=== PATIENT | female | born 1990 | race American Indian/Alaskan Native ===

== ENCOUNTER 2017-10-18 13:44 | Outpatient (CLI) | payer MEDICAID ==
[2017-10-18 15:27] VITALS: BP 116/56
== END 2017-10-18 15:44 | disposition home or self-care (01) ==
LOC: TRG 13:44
PROVIDERS: ATTEND Obstetrics & Gynecology
DX: O48.0 Post-term pregnancy (principal); Z3A.40 40 weeks gestation of pregnancy
CPT/HCPCS: 59025

== ENCOUNTER 2021-08-14 06:04 | Day surgery (SDC) | payer MEDICAID ==
[2021-08-14] MEDS ORDERED: LACTATED RINGERS 1,000 ML IV SCH (06:30)
[2021-08-14] MEDS ORDERED: BACTERIOSTATIC SODIUM CHLORIDE 0.9% 30 ML VIAL INFILTRATI ONE (06:33)
[2021-08-14] MEDS ORDERED: BUPIVACAINE/PF (0.25%) 2.5 MG/ML 30 ML VIAL INFILTRATI ONE ×2 (07:22→09:45)
[2021-08-14 07:29] LABS: Hematocrit 37.9 % (30.3-42.9)
[2021-08-14] MEDS ORDERED: fentaNYL 100 MCG/2 ML INJ ONE (07:44)
[2021-08-14] MEDS ORDERED: ROCURONIUM 50 MG/5 ML INJ IV ONE (07:45)
[2021-08-14] MEDS ORDERED: ONDANSETRON 4 MG/2 ML INJ ONE (07:45)
[2021-08-14] MEDS ORDERED: propofoL 200 MG/20 ML VIAL IV ONE (07:45)
--- NOTE | 2021-08-14 07:46 | Anesthesia Day of Surgery ---
Anesthesia Day of Surgery - Day of Surgery Patient Examined: Yes Patient H&P Reviewed: Yes Patient is NPO: Yes
--- NOTE | 2021-08-14 07:46 | Anesthesia Consultation ---
Anesthesia Consult and Med Hx Date of service: 08/14/21 - Airway Anesthetic Teeth Evaluation: Good ROM Head & Neck: Adequate Mental/Hyoid Distance: Adequate Mallampati Class: Class II Intubation Access Assessment: Probably Good - Pre-Operative Health Status ASA Pre-Surgery Classification: ASA3 Proposed Anesthetic Plan: General - Pulmonary Hx Smoking: No Hx Asthma: No COPD: No Hx Pneumonia: No Hx Sleep Apnea: No (SNORES) - Cardiovascular System Hx Hypertension: No Hx Heart Attack/AMI: No - Central Nervous System Hx Seizures: No Hx Back Pain: Yes (RARE- LOWER BACK PAIN) Hx Psychiatric Problems: No - Endocrine Hx Renal Disease: No Hx End Stage Renal Disease: No Hx Liver Disease: No Hx Hypothyroidism: No Hx Hyperthyroidism: No - Hematic Hx Anemia: No Hx Sickle Cell Disease: No - Other Systems Hx Alcohol Use: No Hx Substance Use: No Hx Cancer: No Hx Obesity: Yes (BMI > 40, morbid obesity)
[2021-08-14] MEDS ORDERED: MIDAZOLAM 2 MG/2 ML INJ ONE (07:55)
[2021-08-14] MEDS ORDERED: HYDROmorphone 1 MG/1 ML INJ IV PRN ×2 (08:00)
[2021-08-14] MEDS ORDERED: MIDAZOLAM 2 MG/2 ML INJ IV NR (08:00)
[2021-08-14] MEDS ORDERED: ONDANSETRON 4 MG/2 ML INJ IV PRN (08:00)
[2021-08-14] MEDS ORDERED: ACETAMINOPHEN 500 MG TAB PO SCH (08:00)
[2021-08-14] MEDS ORDERED: CELECOXIB 200 MG CAP PO NR (08:00)
[2021-08-14] MEDS ORDERED: MAGNESIUM OXIDE 400 MG TAB PO SCH (08:00)
--- NOTE | 2021-08-14 08:01 | Short Stay Summary ---
Short Stay Documentation Date of service: 08/14/21 Narrative H&P: Pt is a 31 year old female who presents today for treatment of a long standing ovarian cyst. Cyst has been present since patients last . - History Principal diagnosis: Ovarian cyst H&P: obtained from office Past Medical History: No medical history Past Surgical History: No surgical history Social history: - Allergies and Medications Current Medications: Allergies No Known Allergies Allergy (Unverified 10/18/17 13:58) Home Medications Medication Instructions Recorded Confirmed Last Taken Type Ibuprofen [Motrin] 800 mg PO PRN PRN 08/10/21 08/09/21 History Active Medications Acetaminophen (Acetaminophen 500 Mg Tab) 1,000 mg PO PREOP DENISE Stop: 08/14/21 21:00 Celecoxib (Celecoxib 200 Mg Cap) 400 mg PO PREOP NR Stop: 08/14/21 21:00 Hydromorphone HCl (Hydromorphone 1 Mg/1 Ml Inj) 0.25 mg IV Q10MIN PRN PRN Reason: Pain, Moderate (4-6) Stop: 08/14/21 17:00 Hydromorphone HCl (Hydromorphone 1 Mg/1 Ml Inj) 0.5 mg IV Q10MIN PRN PRN Reason: Pain , Severe (7-10) Stop: 08/14/21 17:00 Lactated Ringer's (Lactated Ringers) 1,000 mls @ 100 mls/hr IV DIRECT DENISE Magnesium Oxide (Magnesium Oxide 400 Mg Tab) 400 mg PO PREOP DENISE Stop: 08/14/21 21:00 Midazolam HCl (Midazolam 2 Mg/2 Ml Inj) 2 mg IV PREOP NR Stop: 08/14/21 23:59 Ondansetron HCl (Ondansetron 4 Mg/2 Ml Inj) 4 mg IV ONCE PRN PRN Reason: Nausea And Vomiting Stop: 08/14/21 18:00 - Physical exam General appearance: no acute distress HEENT: Atraumatic Lungs: Clear to auscultation, Normal air movement Breasts: deferred Heart: Regular rate, Normal S1, Normal S2 Gastrointestinal: normal, normoactive bowel sounds Female Genitourinary: deferred Rectal Exam: deferred Extremities: no ischemia Neurological: Normal gait, Normal speech - Brief post op/procedure progress note Date of procedure: 08/14/21 Pre-op diagnosis: Ovarian cyst Post-op diagnosis: same Procedure: Operative laparoscopy with left salpingo-oophorectomy Anesthesia: GETA Findings: 15 cm left ovarian cyst containing approximately 1000 cc of dark fluid Surgeon: AJAY NAVARRO Estimated blood loss: 50-100ml Pathology: list (1. Cyst wall fluid 2. Left ovary wall) Specimen disposition: to lab Condition: stable - Hospital course Hospital course: Unremarkable - Disposition Condition at discharge: Good Disposition: 01 HOME / SELF CARE / HOMELESS Short Stay Discharge Plan Activity: advance as tolerated Weight Bearing Status: Weight Bear as Tolerated Diet: regular Wound: open to air Follow up with: AJAY NAVARRO MD [Staff Physician] - 14 Days Prescriptions: Ibuprofen [Motrin 800 MG tab] 800 mg PO Q6H PRN #40 PRN Reason: Pain, Moderate (4-6) oxyCODONE /ACETAMINOPHEN [Percocet 5/325] 1 tab PO Q4HR #30 tab
[2021-08-14] MEDS ORDERED: SODIUM CHLORIDE 0.9% IRRIG SOLN 2000 ML IR ONE (09:45)
[2021-08-14] MEDS ORDERED: GLYCOPYRROLATE 0.4 MG/2 ML INJ ONE (09:59)
[2021-08-14] MEDS ORDERED: NEOSTIGMINE 10MG/10 ML INJ MDV ONE (09:59)
[2021-08-14] MEDS ORDERED: LACTATED RINGERS 1,000 ML ONE (09:59)
[2021-08-14] MEDS ORDERED: dexAMETHasone 20 MG/5 ML VIAL ONE (10:00)
[2021-08-14] MEDS ORDERED: LIDOCAINE MPF (2%) 20 MG/1 ML VIAL 5 ML ONE (10:00)
--- NOTE | 2021-08-14 10:34 | Operative Report ---
Operative Report Operative Report: Preoperative diagnosis: Left ovarian cyst Postoperative diagnosis: Same Procedure: Laparoscopic left salpingo-oophorectomy Surgeon: Jesika Briseno Anesthesia: General EBL: 100 cc IV fluids: 1000 mL Urine output: 300 mL Findings: Normal uterus tubes and right ovary, markedly enlarged left ovary consistent with large follicular cyst Specimens: 1. Cyst fluid 2. Wall of left ovary Complications: None The patient was properly identified as herself. She was then taken to the OR with IV running and in place. She was given general anesthesia without difficulty. She was placed in a dorsal lithotomy position. She was then prepped and draped in normal sterile fashion. Attention was turned to the patient's vagina. A Lee catheter was placed into the bladder. The speculum was then placed the patient's vagina. The cervix was visualized and grasped with tenaculum. The acorn cannula was then inserted. The surgeon's gloves were changed and attention turned to the patient's abdomen. A small incision was made in the patient's umbilicus incision a 5 mm trocar was placed. The laparoscope confirmed intra-abdominal placement. The abdomen was insufflated with CO2 gas to approximately 25 mmHg. On entry into the pelvic cavity a large ovarian cyst was identified sitting in the midline obscuring view of the uterus. The ovary was approximately 15 cm in diameter. With direct visualization a second trocar was placed through an incision in the left lower quadrant. Needle was inserted into the ovary and some cyst fluid was drained to be sent to pathology. Because of the size of the ovary incision was made to drain as much fluid as possible from the ovary prior to removing it as the cortex of the ovary seemed to be completely obliterated with the cyst. Approximately 1000 cc of clear dark fluid was drained from the left ovary. At this point a third incision was made in the midline above the symphysis pubis, and a trocar was placed through this incision. Following this infundibulopelvic ligament was identified it was transected and cauterized using the LigaSure device. The ovary was then detached across the area of the broad ligament up to the area of the utero-ovarian ligament which was also cauterized and transected. At this point hemostasis from the uterus was assured. Then, using an Endopouch bag, the ovary was placed into the bag and delivered through the port on the left lower quadrant. There was excellent hemostasis at the end of this portion of the procedure. At this point the abdomen was deflated. All instruments were then removed from the abdomen. The incisions were then closed with 4-0 Monocryl. The incisions were also injected with quarter percent Marcaine. The patient tolerated the procedure well she was then awakened and taken recovery in stable condition. Sponge needle and instrument counts were correct 2.
[2021-08-14 15:44] LABS: Total Cells Counted 100 /mm3
--- NOTE | 2021-08-14 16:55 | Post Anesthesia Evaluation ---
- Post Anesthesia Evaluation Patient Participated: Yes Airway Patent: Yes Stable Respiratory Function: Yes Nausea/Vomiting: No Temp > 96.8F: Yes Pain Manageable: Yes Adequeate Hydration: Yes Anesthesia Complications: No Block Receding Appropriately: Not Applicable Patient on Ventilator: No
[2021-08-15 00:20] VITALS: BP 111/55
== END 2021-08-14 11:15 | disposition home or self-care (01) ==
LOC: OR 06:04
PROVIDERS: ATTEND Obstetrics & Gynecology
DX: N83.202 Unspecified ovarian cyst, left side (principal); E66.9 Obesity, unspecified; Z79.899 Other long term (current) drug therapy; Z98.890 Other specified postprocedural states
CPT/HCPCS: 36415; 58661; 81025; 85014; 85018; 86850; 86900; 86901; 87116; 88305; 89051; A4217; J0690; J1100; J1170; J2250; J2405; J2704; J2710; J3010; J7120; 88307